=== PATIENT | female | born 1990 | race Caucasian/White ===

== ENCOUNTER 2017-07-26 11:49 | Emergency (ER) | payer OTHER ==
[2017-07-26] MEDS: BUPIVACAINE HCL 0.5% 10 ML VIAL SC (13:15)
[2017-07-26] MEDS: LIDOCAINE 2% W/EPIN INJ 20ML **PRES FREE INJ (13:26)
[2017-07-26] MEDS: ADACEL/BOOSTRIX VACCINE (DIPHTH/PERTUSS/ACELL/TETANUS)0.5ML SYR (90715) IM (15:12)
== END 2017-07-26 15:20 | disposition home or self-care (01) ==
LOC: M ED 11:49
DX: S81.012A Laceration without foreign body, left knee, initial encounter (principal); W19.XXXA Unspecified fall, initial encounter; Y92.9 Unspecified place or not applicable; Y93.9 Activity, unspecified
CPT/HCPCS: 90715

== ENCOUNTER → 2022-06-18 | Outpatient (REF) | payer OTHER ==
[~2022-06-18] MED LIST: IBUP-1022 PO; TYLE325T5 PO
[2022-06-18 21:54] LABS: APPEARANCE, URINE MANUAL CLEAR (CLEAR); COLOR, URINE MANUAL YELLOW (YELLOW)
[2022-06-18 21:55] LABS: PH,URINE MAN 5.5 UNITS (5.0 - 7.0); PROTEIN, URINE MANUAL NEGATIVE (NEGATIVE)
[2022-06-18 21:56] LABS: BILIRUBIN, URINE MANUAL NEGATIVE (NEGATIVE); BLOOD URINE MANUAL NEGATIVE (NEGATIVE); GLUCOSE, URINE (UA) MANUAL 1+(100 MG/DL) mg/dL (NEGATIVE); KETONE, URINE MANUAL NEGATIVE (NEGATIVE); LEUKOCYTE ESTERASE, URINE MAN POSITIVE (NEGATIVE); NITRITE, URINE MANUAL NEGATIVE (NEGATIVE); UROBILINOGEN, URINE MANUAL NORMAL (NORMAL)
[2022-06-18 22:10] LABS: AMORPHOUS SEDIMENT, URINE MOD AMOUNT (NEGATIVE); BACTERIA, URINE NONE SEEN; HYALINE CAST, URINE NONE SEEN /lpf (0-1); MUCUS, URINE SMALL AMOUNT (NEGATIVE); RBC, URINE 0-1 /hpf (0-3); SQUAMOUS EPITHELIAL CELL URINE MOD AMOUNT /hpf (SMALL AMT)
== END ==
LOC: M LAB REF 21:33
PROVIDERS: ATTEND Physician Assistant Medical
DX: N39.0 Urinary tract infection, site not specified (principal)

== ENCOUNTER 2022-06-25 12:05 | Emergency (ER) | payer OTHER ==
[~2022-06-25] VITALS: Ht 167.6 cm; Wt 82.0 kg
[2022-06-25] MEDS ORDERED: CIPR500T39 (12:35)
[2022-06-25 15:22] LABS: APPEARANCE, URINE MANUAL CLEAR (CLEAR); COLOR, URINE MANUAL YELLOW (YELLOW); PH,URINE MAN 6.5 UNITS (5.0 - 7.0)
[2022-06-25 15:23] LABS: BILIRUBIN, URINE MANUAL NEGATIVE (NEGATIVE); BLOOD URINE MANUAL NEGATIVE (NEGATIVE); GLUCOSE, URINE (UA) MANUAL NEGATIVE (NEGATIVE); KETONE, URINE MANUAL NEGATIVE (NEGATIVE); LEUKOCYTE ESTERASE, URINE MAN NEGATIVE (NEGATIVE); NITRITE, URINE MANUAL NEGATIVE (NEGATIVE); PROTEIN, URINE MANUAL NEGATIVE (NEGATIVE); UROBILINOGEN, URINE MANUAL NORMAL (NORMAL)
[2022-06-25 15:24] LABS: HEMATOCRIT 41.5 % (36.0-47.0); HEMOGLOBIN 13.7 g/dl (12.0-15.5); MEAN CORPUSCULAR HEMOGLOBIN 30.1 pg (27.0-33.0); MEAN CORPUSCULAR VOLUME 91.2 fl (80.0-96.0); PLATELET COUNT, AUTOMATED 260 10^3/uL (150-450); RED BLOOD COUNT 4.55 10^6/uL (4.00-5.40); WHITE BLOOD COUNT 8.5 10^3/uL (4.0-10.0)
[2022-06-25 15:49] LABS: BLOOD UREA NITROGEN 13 MG/DL (9-23); CALCIUM LEVEL 8.7 MG/DL (8.5-10.1); CARBON DIOXIDE LEVEL 27 MMOL/L (20-31); CHLORIDE LEVEL 106 MMOL/L (98-107); CREATININE FOR GFR 0.74 MG/DL (0.55-1.30); GLOMERULAR FILTRATION RATE > 60.0 (>60); GLUCOSE, FASTING 97 MG/DL (60-100); POTASSIUM SERUM 3.9 MMOL/L (3.5-5.1); SODIUM LEVEL 140 MMOL/L (136-145)
[2022-06-25] MEDS ORDERED: KETOROLAC 30 MG/ML 1ML VIAL IV ONE (16:05)
[2022-06-25] MEDS ORDERED: NS 1,000 ML IV ONE (16:05)
[2022-06-25 16:19] LABS: HCG, SERUM QUALITATIVE NEGATIVE (NEGATIVE)
[2022-06-25] MEDS ORDERED: LIDO5DIS41 TD (18:01)
[2022-06-25] MEDS ORDERED: CYCL5TAB PO (18:01)
[2022-06-25 18:20] VITALS: BP 106/56
== END 2022-06-25 18:22 | disposition home or self-care (01) ==
LOC: M ED 12:05
DX: R10.9 Unspecified abdominal pain (principal)

== ENCOUNTER → 2023-09-23 | Outpatient (CLI) | payer OTHER, SELFPAY ==
[~2023-09-23] MED LIST changes: +CIPR500T39; +CYCL5TAB PO; +LIDO5DIS41 TD
[2023-09-23 17:49] LABS: HEMOGLOBIN 13.5 g/dl (12.0-15.5); MEAN CORPUSCULAR HEMOGLOBIN 29.1 pg (27.0-33.0); MEAN CORPUSCULAR HGB CONC 32.9 g/dl (32.0-36.5); MEAN CORPUSCULAR VOLUME 88.4 fl (80.0-96.0); PLATELET COUNT, AUTOMATED 290 10^3/uL (150-450); RED BLOOD COUNT 4.64 10^6/uL (4.00-5.40); WHITE BLOOD COUNT 12.8 10^3/uL (4.0-10.0)
[2023-09-23 18:47] LABS: HIV 1&2 SCREEN NEGATIVE (NEGATIVE)
[2023-09-23 18:56] LABS: HEPATITIS C VIRUS ABY INDEX < 0.02 INDEX (<0.8)
[2023-09-23 21:02] LABS: GC DNA AMPLIFICATION NEGATIVE (NEGATIVE)
== END ==
LOC: M PLALAB 15:17
PROVIDERS: ATTEND Advanced Practice Midwife
DX: Z34.91 Encounter for supervision of normal pregnancy, unspecified, first trimester (principal)

== ENCOUNTER → 2023-10-21 | Outpatient (CLI) | payer OTHER | LOC: M PLALAB 12:11 | PROVIDERS: ATTEND Advanced Practice Midwife | DX: Z34.80 Encounter for supervision of other normal pregnancy, unspecified trimester (principal) ==

== ENCOUNTER 2023-11-19 15:08 | Emergency (ER) | payer OTHER ==
[~2023-11-19] VITALS: Ht 167.6 cm; Wt 81.7 kg
[2023-11-19] MEDS ORDERED: HEAL1TAB PO (15:14)
[2023-11-19] MEDS ORDERED: PREN1CHW4 PO (15:14)
[2023-11-19] MEDS ORDERED: ONDA-282 PO (15:14)
[2023-11-19] MEDS: NS 1,000 ML IV ONE (16:15)
[2023-11-19 17:23] LABS: BASO % 0.2 % (0.0-1.0); EOS % 0.1 % (0.0-3.0); HEMOGLOBIN 13.4 g/dl (12.0-15.5); LYMPH # 0.8 10^3/uL (1.5-5.0); LYMPH % 6.4 % (24.0-44.0); MEAN CORPUSCULAR HGB CONC 34.4 g/dl (32.0-36.5); MEAN CORPUSCULAR VOLUME 87.4 fl (80.0-96.0); MONO # 0.3 10^3/uL (0.0-0.8); MONO % 2.3 % (2.0-8.0); NEUTROPHILS # 11.9 10^3/uL (1.5-8.5); NEUTROPHILS % 90.5 % (36.0-66.0); PLATELET COUNT, AUTOMATED 217 10^3/uL (150-450); RED BLOOD COUNT 4.46 10^6/uL (4.00-5.40); WHITE BLOOD COUNT 13.2 10^3/uL (4.0-10.0)
[2023-11-19 17:48] LABS: LIPASE 21 U/L (12-53)
[2023-11-19 17:50] LABS: ALBUMIN 3.1 G/DL (3.2-5.2); ALKALINE PHOSPHATASE 82 U/L (46-116); ALT/SGPT 46 U/L (7.0-40); AST/SGOT 17 U/L (<34); BILIRUBIN,DIRECT 0.2 MG/DL (<0.4); BILIRUBIN,TOTAL 0.8 MG/DL (0.3-1.2); BLOOD UREA NITROGEN 8 MG/DL (9-23); CALCIUM LEVEL 9.1 MG/DL (8.5-10.1); CARBON DIOXIDE LEVEL 23 MMOL/L (20-31); CHLORIDE LEVEL 103 MMOL/L (98-107); CREATININE FOR GFR 0.53 MG/DL (0.55-1.30); GLOMERULAR FILTRATION RATE > 60.0 (>60); GLUCOSE, FASTING 85 MG/DL (60-100); POTASSIUM SERUM 4.2 MMOL/L (3.5-5.1); SODIUM LEVEL 134 MMOL/L (136-145); TOTAL PROTEIN 6.4 G/DL (5.7-8.2)
[2023-11-19] MEDS ORDERED: CEFD300C PO (18:33)
[2023-11-19] MEDS: CEPHALEXIN 500 MG CAP PO ONE (18:39)
[2023-11-19 18:42] VITALS: BP 114/56; TEMP 97.6; O2SAT 95
== END 2023-11-19 18:45 | disposition home or self-care (01) ==
LOC: M ED 15:08
DX: O23.42 Unspecified infection of urinary tract in pregnancy, second trimester (principal); N39.0 Urinary tract infection, site not specified; Z3A.16 16 weeks gestation of pregnancy

== ENCOUNTER → 2023-12-23 | Outpatient (CLI) | payer OTHER ==
[~2023-12-23] MED LIST changes: +CEFD300C PO; +HEAL1TAB PO; +ONDA-282 PO; +PREN1CHW4 PO
== END ==
LOC: M WHC 07:53
PROVIDERS: ATTEND Advanced Practice Midwife
DX: Z34.82 Encounter for supervision of other normal pregnancy, second trimester (principal); Z3A.21 21 weeks gestation of pregnancy

== ENCOUNTER → 2024-03-19 | Outpatient (CLI) | payer OTHER ==
[2024-03-19 13:51] LABS: HEMATOCRIT 34.2 % (36.0-47.0); HEMOGLOBIN 11.3 g/dl (12.0-15.5); MEAN CORPUSCULAR HEMOGLOBIN 29.3 pg (27.0-33.0); MEAN CORPUSCULAR VOLUME 88.6 fl (80.0-96.0); PLATELET COUNT, AUTOMATED 232 10^3/uL (150-450); RED BLOOD COUNT 3.86 10^6/uL (4.00-5.40); WHITE BLOOD COUNT 8.7 10^3/uL (4.0-10.0)
[2024-03-19 13:54] LABS: GLUCOSE CHALLENGE TEST 1 HOUR 172 MG/DL (LESS THAN 140)
[2024-03-19 14:24] LABS: HIV 1&2 SCREEN NEGATIVE (NEGATIVE)
[2024-03-19 14:32] LABS: HEPATITIS C VIRUS ABY INDEX < 0.02 INDEX (<0.8)
[2024-03-19 15:21] LABS: GC DNA AMPLIFICATION NEGATIVE (NEGATIVE)
== END ==
LOC: M PLALAB 10:17
PROVIDERS: ATTEND Obstetrics & Gynecology
DX: Z34.80 Encounter for supervision of other normal pregnancy, unspecified trimester (principal)

== ENCOUNTER → 2024-04-06 | Outpatient (CLI) | payer OTHER | LOC: M LAB 07:34 | PROVIDERS: ATTEND Obstetrics & Gynecology | DX: R73.09 Other abnormal glucose (principal) ==

== ENCOUNTER → 2024-04-09 | Outpatient (REF) | payer OTHER ==
[~2024-04-09] MED LIST changes: +ACET-683 PO; -CYCL5TAB PO; +CYCL5TAB4 PO; +IBUP80TA PO; +TUMS500C PO
== END ==
LOC: M PLALAB 09:19
PROVIDERS: ATTEND Advanced Practice Midwife
DX: Z36.85 Encounter for antenatal screening for Streptococcus B (principal); Z3A.36 36 weeks gestation of pregnancy

== ENCOUNTER → 2024-04-09 | Outpatient (CLI) | payer OTHER ==
[~2024-04-09] MED LIST changes: -ACET-683 PO; +CYCL5TAB PO; -CYCL5TAB4 PO; -IBUP80TA PO; -TUMS500C PO
[2024-04-09 14:04] LABS: HEMOGLOBIN A1c 5.1 % (4.0-6.0)
== END ==
LOC: M PLALAB 10:08
PROVIDERS: ATTEND Advanced Practice Midwife
DX: O24.419 Gestational diabetes mellitus in pregnancy, unspecified control (principal); Z3A.00 Weeks of gestation of pregnancy not specified

== ENCOUNTER → 2024-04-21 | Outpatient (CLI) | payer OTHER | LOC: M WHC 13:31 | PROVIDERS: ATTEND Advanced Practice Midwife | DX: O24.419 Gestational diabetes mellitus in pregnancy, unspecified control (principal); Z3A.39 39 weeks gestation of pregnancy ==

== ENCOUNTER 2024-04-26 09:26 | Inpatient (IN) | payer OTHER, SELFPAY ==
[2024-04-26] VITALS (8 sets, daily range): BP systolic 105–126; BP diastolic 53–76
[~2024-04-26] VITALS: Ht 167.6 cm; Wt 85.5 kg
[~2024-04-26 09:26] MED LIST changes: -CYCL5TAB PO; +CYCL5TAB4 PO
[2024-04-26] MEDS ORDERED: TUMS500C PO (09:49)
[2024-04-26] MEDS ORDERED: HOME MED LIST COMPLETE! XX SCH (09:55)
[2024-04-26 10:24] LABS: HEMATOCRIT 30.9 % (36.0-47.0); HEMOGLOBIN 10.1 g/dl (12.0-15.5); MEAN CORPUSCULAR HEMOGLOBIN 27.4 pg (27.0-33.0); MEAN CORPUSCULAR HGB CONC 32.7 g/dl (32.0-36.5); PLATELET COUNT, AUTOMATED 216 10^3/uL (150-450); RED BLOOD COUNT 3.68 10^6/uL (4.00-5.40); WHITE BLOOD COUNT 8.7 10^3/uL (4.0-10.0)
[2024-04-26] MEDS ORDERED: CARBOPROST TROMETHAMINE 250 MCG/ML AMP IM PRN (10:25)
[2024-04-26] MEDS ORDERED: OXYTOCIN INJ 10UNITS/ML 1ML VIAL IM PRN (10:25)
[2024-04-26] MEDS ORDERED: OXYTOCIN DRIP 30 UNITS in IV 1 EA IV PRN (10:25)
[2024-04-26] MEDS ORDERED: METHYLERGONOVINE MALEATE 0.2MG/ML 1ML VIAL IM PRN (10:25)
[2024-04-26] MEDS ORDERED: TRANEXAMIC ACID INJection 1,000 MG in NS 100 ML IV PRN (10:25)
[2024-04-26] MEDS: miSOPROStol 50MCG 1/2 TABLET PO SCH (10:48)
[2024-04-26 11:31] LABS: HEPATITIS C VIRUS ABY INDEX < 0.02 INDEX (<0.8)
[2024-04-26] MEDS: LR 1,000 ML IV SCH (17:31)
[2024-04-26] MEDS: CALCIUM CARBONATE 500 MG CHEW U/D PO ONE (22:31)
[2024-04-27] VITALS (23 sets, daily range): BP systolic 97–132; BP diastolic 53–77; O2SAT 96–97
[2024-04-27] MEDS: OXYTOCIN DRIP 30 UNITS in IV 1 EA IV SCH (00:24)
[2024-04-27] MEDS: NS 1,000 ML IV SCH (00:27)
[2024-04-27] MEDS ORDERED: ONDANSETRON 4MG 2ML VIAL As Ordered ONE (08:48)
[2024-04-27] MEDS: ONDANSETRON 4MG 2ML VIAL IV SCH (08:51)
[2024-04-27] MEDS: LIDOCAINE 1% MDV 20ML VIAL INFIL PRN (10:10)
[2024-04-27 10:14] LABS: CORD GAS ABE V -4.4; CORD GAS HCO3 V 22.7 MMOL/L; CORD GAS O2 SAT V 38.1 %; CORD GAS PCO2 V 48.8 mmHg; CORD GAS PH V 7.285 UNITS; CORD GAS PO2 V 18.9 mmHg; CORD GAS SBC V 19.4 MMOL/L; CORD GAS TCO2 V 24.2 MMOL/L
[2024-04-27 10:17] LABS: CORD GAS HCO3 A 23.2 MMOL/L; CORD GAS O2 SAT A 22.4 %; CORD GAS PCO2 A 54.8 mmHg; CORD GAS PH A 7.244 UNITS; CORD GAS PO2 A 13.8 mmHg; CORD GAS SBC A 18.6 MMOL/L; CORD GAS TCO2 A 24.9 MMOL/L
[2024-04-27] MEDS ORDERED: MOM 30ML SUSPENSION UDC PO PRN (10:30)
[2024-04-27] MEDS ORDERED: RHOGAM 300MCG (1500IU) INJ IM SCH (10:30)
[2024-04-27] MEDS ORDERED: ACETAMINOPHEN 500 MG TAB PO PRN (10:30)
[2024-04-27] MEDS: IBUPROFEN 800 MG TAB PO PRN (13:59)
[2024-04-27] MEDS: DIBUCAINE 1% OINTMENT 30GM TOP PRN (15:33)
[2024-04-27] MEDS ORDERED: ONDANSETRON 4MG 2ML VIAL IV PRN (17:30)
[2024-04-27] MEDS: DOCUSATE SODIUM 100MG CAPSULE PO SCH (20:32)
[2024-04-28 05:57] VITALS: BP 118/72; O2SAT 97
[2024-04-28] MEDS ORDERED: ACET-683 PO (07:15)
[2024-04-28] MEDS ORDERED: IBUP80TA PO (07:16)
[2024-04-28] MEDS: PRENATAL VITAMINS CHEWABLE TABLET PO SCH (10:00)
[2024-04-29] MEDS ORDERED: MEASLES,MUMPS,RUBELLA VACCINE INJ (MMR-II) SC.IMMUN ONE (09:00)
== END 2024-04-28 13:40 | disposition home or self-care (01) | DRG 560 ==
LOC: M LDI 09:26 → M OBS 04-27 11:44
PROVIDERS: ADMIT Advanced Practice Midwife; ATTEND Advanced Practice Midwife
PROC: 3E0P7VZ Introduction of Hormone into Female Reproductive, Via Natural or Artificial Opening (ICD-10-PCS; 2024-04-26)
PROC: 3E033VJ Introduction of Other Hormone into Peripheral Vein, Percutaneous Approach (ICD-10-PCS; 2024-04-26)
PROC: 10E0XZZ Delivery of Products of Conception, External Approach (ICD-10-PCS; principal; 2024-04-27)
PROC: 0KQM0ZZ Repair Perineum Muscle, Open Approach (ICD-10-PCS; 2024-04-27)
DX: O24.429 Gestational diabetes mellitus in childbirth, unspecified control (principal); O69.1XX0 Labor and delivery complicated by cord around neck, with compression, not applicable or unspecified; Z37.0 Single live birth; Z3A.39 39 weeks gestation of pregnancy; O70.1 Second degree perineal laceration during delivery